=== PATIENT | female | born 1940 ===

== ENCOUNTER 2016-11-28 09:59 | Emergency (ER) | payer MEDICARE, BC ==
[2016-11-28 10:15] VITALS: TEMP 98.6; BMI 25.0
--- NOTE | 2016-11-28 11:21 | ED PDOC ---
Arrival/HPI - General Chief Complaint: Lower Extremity Problem/Injury Time Seen by Provider: 11/28/16 10:10 Historian: Patient - History of Present Illness Narrative History of Present Illness (Text): 11/28/16 11:22 A 75 year old female, whose past medical history includes osteoarthritis and DVT , presents to the emergency department complaining of right ankle pain and swelling. Patient reports she was walking in [facility] two days ago. Patient notes pain is worse when walking down flight of stairs. Denies any falls. Patient denies any other complaints at this time. PMD: Dr. Shira Rios Time/Duration: Other (2 days) Symptom Onset: Sudden Symptom Course: Unchanged Context: Walking Past Medical History - Provider Review Nursing Documentation Reviewed: Yes - Infectious Disease Hx of Infectious Diseases: None - Tetanus Immunization Tetanus Immunization: Unknown - Cardiac Hx Hypertension: Yes - Pulmonary Hx Respiratory Disorders: No - Neurological Hx Neurological Disorder: Yes Hx Dementia: Yes - HEENT Hx HEENT Disorder: Yes Other/Comment: WEARS RX GLasses - Renal Hx Renal Disorder: No - Endocrine/Metabolic Hx Endocrine Disorders: No - Hematological/Oncological Hx Blood Disorders: Yes Hx Shingles: Yes - Integumentary Hx Dermatological Disorder: No - Musculoskeletal/Rheumatological Hx Musculoskeletal Disorders: Yes Hx Falls: Yes Hx Unsteady Gait: Yes - Gastrointestinal Hx Gastrointestinal Disorders: Yes (DIVERTICULITIS,PUD,CHOLECYSTITIS,10-26-14 POST HEMICOLECTOMY/ANASTOMOSIS,) Hx Diverticulitis: Yes (COLITIS) Other/Comment: CONSTIPATION,APPENDECTOMY 10-26-14 - Genitourinary/Gynecological Hx Genitourinary Disorders: Yes (URINARY INCONTINENCE) Hx Reproductive Disorders: No - Psychiatric Hx Psychophysiologic Disorder: Yes Hx Depression: Yes Hx Emotional Abuse: No Hx Physical Abuse: No Hx Substance Use: No - Surgical History Hx Appendectomy: Yes (10-26-14) - Anesthesia Hx Anesthesia Reactions: No Hx Malignant Hyperthermia: No - Suicidal Assessment Feels Threatened In Home Enviroment: No Family/Social History - Physician Review Nursing Documentation Reviewed: Yes Family/Social History: No Known Family HX Smoking Status: Never Smoked Hx Alcohol Use: No Hx Substance Use: No Hx Substance Use Treatment: No Allergies/Home Meds Allergies/Adverse Reactions: Allergies PCN Allergy (Mild, Uncoded 11/28/16 10:49) RASH Home Medications: Home Meds Medication Instructions Recorded Confirmed Donepezil [Aricept] 10 mg PO DAILY 10/28/12 11/03/14 Raloxifene HCl [Evista] 60 mg PO DAILY 10/28/12 11/03/14 Ursodiol 500 mg PO DAILY 10/28/12 11/03/14 Valsartan [Diovan] 60 mg PO DAILY 10/07/14 11/03/14 Review of Systems - Physician Review All systems were reviewed & negative as marked: Yes - Review of Systems Constitutional: absent: Fevers Respiratory: absent: SOB Musculoskeletal: Other (right ankle pain and swelling) Neurological: absent: Dizziness Physical Exam Vital Signs Reviewed: Yes Vital Signs Temp Pulse Resp BP Pulse Ox 11/28/16 13:20 75 18 141/60 99 11/28/16 10:08 98.6 F 81 16 140/52 L 96 Temperature: Afebrile Blood Pressure: Hypotensive Pulse: Regular Respiratory Rate: Normal Appearance: Positive for: Well-Appearing, Non-Toxic, Comfortable Pain Distress: None Mental Status: Positive for: Alert and Oriented X 3 - Systems Exam Head: Present: Atraumatic, Normocephalic Pupils: Present: PERRL Extroacular Muscles: Present: EOMI Conjunctiva: Present: Normal Mouth: Present: Moist Mucous Membranes Neck: Present: Normal Range of Motion Respiratory/Chest: Present: Clear to Auscultation, Good Air Exchange. No: Respiratory Distress, Accessory Muscle Use Cardiovascular: Present: Regular Rate and Rhythm, Normal S1, S2. No: Murmurs Abdomen: Present: Normal Bowel Sounds. No: Tenderness, Distention, Peritoneal Signs Back: Present: Normal Inspection Upper Extremity: Present: Normal Inspection. No: Cyanosis, Edema Lower Extremity: Present: Edema, NORMAL PULSES, Capillary Refill < 2 s, Other ( achilles tendon intact). No: Normal Inspection Neurological: Present: GCS=15, CN II-XII Intact, Speech Normal Skin: Present: Warm, Dry, Normal Color. No: Rashes Psychiatric: Present: Alert, Oriented x 3, Normal Insight, Normal Concentration Medical Decision Making ED Course and Treatment: 11/28/16 11:18 Impression: A 75 year old female with right ankle pain and swelling. Differential Diagnosis included but are not limited to: r/o fracture, DVT Plan: -- US duplex lower extremity -- Radiology right ankle -- Motrin -- Reassess and disposition Prior Visits: Notes and results from previous visits were reviewed. Patient last reported to the emergency department on 10/12/14 for evaluation of abdominal pain, nausea and vomiting. Patient was admitted under Dr. Roberson's service for diverticulitis. Patient discharged on 10/18/14. Progress Notes: 11/28/16 11:29 Right Ankle Radiographs Creator : Ric Tan MD IMPRESSION: Normal right ankle radiographs. - RAD Interpretation Radiology Orders: 11/28/16 10:50 ANKLE RIGHT 3 VIEWS ROUTINE [RAD] Stat DUPLEX LOWER EXTRM VEIN RIGHT [US] Stat - Medication Orders Current Medication Orders: Discontinued Medications Ibuprofen (Motrin Tab) 600 mg PO STAT STA Stop: 11/28/16 10:52 Last Admin: 11/28/16 10:58 Dose: 600 mg Re-Assess: KEVYN Pain/Vitals Document 11/28/16 11:58 KRISTIAN (Rec: 11/28/16 14:05 KRISTIAN [id number]) Pain Reassessment Is This A Pain ReAssessment? Yes Sleep Is patient sleeping during reassessment? No Presence of Pain Presence of Pain Yes Pain Scale Used Pain Scale Used Numeric Location Intensity 4 Scale Used Numeric - Scribe Statement The provider has reviewed the documentation as recorded by the Scribe Daisy Ken All medical record entries made by the Scribe were at my direction and personally dictated by me. I have reviewed the chart and agree that the record accurately reflects my personal performance of the history, physical exam, medical decision making, and the department course for this patient. I have also personally directed, reviewed, and agree with the discharge instructions and disposition. Disposition/Present on Arrival - Present on Arrival Any Indicators Present on Arrival: No History of DVT/PE: Yes History of Uncontrolled Diabetes: No Urinary Catheter: Yes History of Decub. Ulcer: No History Surgical Site Infection Following: None - Disposition Have Diagnosis and Disposition been Completed?: Yes Diagnosis: Ankle sprain Disposition: HOME/ ROUTINE Disposition Time: 11:40 Condition: GOOD Discharge Instructions (ExitCare): Ankle Sprain (ED) Additional Instructions: Thank you for letting us take care of you today. Your provider was Dr. Rowe. You were treated for an ankle sprain. The emergency medical care you received today was directed at your acute symptoms. If you were prescribed any medication, please fill it and take as directed. It may take several days for your symptoms to resolve. Return to the Emergency Department if your symptoms worsen, do not improve, or if you have any other problems. Please contact your doctor or call one of the physicians/clinics you have been referred to that are listed on the Patient Visit Information form that is included in your discharge packet. Bring any paperwork you were given at discharge with you along with any medications you are taking to your follow up visit. Our treatment cannot replace ongoing medical care by a primary care provider (PCP) outside of the emergency department. Thank you for allowing the [facility] team to be part of your care today. Follow up with your doctor in 2-3 days for re-evaluation. Prescriptions: Ibuprofen [Motrin] 600 mg PO Q6 PRN #20 tab PRN Reason: Pain, Moderate (4-7) Referrals: Shira Rios DO [Primary Care Provider] - Follow up with primary
--- NOTE | 2016-11-28 11:27 | RAD ---
PROCEDURE: Right Ankle Radiographs. HISTORY: r/o fx COMPARISON: None FINDINGS: BONES: Normal. No fracture. JOINTS: Normal. No osteoarthritis. Ankle mortise maintained. Talar dome intact SOFT TISSUES: Normal. OTHER FINDINGS: None. IMPRESSION: Normal right ankle radiographs.
[2016-11-28 13:21] VITALS: BP 141/60; PULSE 75; RESP 18; O2SAT 99
--- NOTE | 2016-11-28 17:55 | US ---
PROCEDURE: Right lower extremity venous US HISTORY: Leg pain and swelling. Evaluate for DVT. PHYSICIAN(S): Harpreet Ibarra M.D. TECHNIQUE: Duplex sonography and color-flow Doppler with graded compression were used to evaluate the deep venous system of the right lower extremity. FINDINGS: The visualized deep venous system of the right lower extremity is sonographically normal and compressible. Normal waveforms and augmentation are seen. There is no sonographic evidence for deep venous thrombosis in the visualized segments of the right lower extremity. IMPRESSION: 1. No sonographic evidence for deep venous thrombosis in the visualized segments of the right lower extremity.
== END 2016-11-28 13:30 | disposition home or self-care (01) ==
LOC: ED 09:59
DX: S93.401A Sprain of unspecified ligament of right ankle, initial encounter (principal); X58.XXXA Exposure to other specified factors, initial encounter; Y93.01 Activity, walking, marching and hiking

== ENCOUNTER 2018-03-10 08:59 | Day surgery (SDC) | payer MEDICARE, BC ==
[2018-03-10] MEDS ORDERED: Propofol 10 mg/ml Inj (20 ML) ONE (11:16)
[2018-03-10] MEDS ORDERED: Sodium Chloride 0.9% 1,000 ML IV SCH (12:45)
[2018-03-10 13:13] VITALS: BP 144/68; PULSE 66; RESP 18; TEMP 97.9; O2SAT 98
== END 2018-03-10 14:08 | disposition home or self-care (01) ==
LOC: ENDO 08:59
PROVIDERS: ATTEND Internal Medicine Gastroenterology
DX: K52.9 Noninfective gastroenteritis and colitis, unspecified (principal); D12.4 Benign neoplasm of descending colon; K57.30 Diverticulosis of large intestine without perforation or abscess without bleeding; K64.8 Other hemorrhoids; R19.4 Change in bowel habit
CPT/HCPCS: 45380; 87324; 88305; J2704; J7030; J7040

== ENCOUNTER 2018-07-31 09:06 | Outpatient (CLI) | payer MEDICARE, BC | END 2018-07-31 09:07 | disposition home or self-care (01) | LOC: RAD 09:06 ==

== ENCOUNTER 2018-08-11 10:14 | Outpatient (CLI) | payer MEDICARE, BC | END 2018-08-11 10:15 | disposition home or self-care (01) | LOC: RAD 10:14 ==